=== PATIENT | male | born 1985 | race Caucasian/White ===

== ENCOUNTER 2018-12-01 03:49 | Emergency (ER) | payer OTHER ==
[~2018-12-01] VITALS: Ht 190.5 cm; Wt 113.4 kg
[2018-12-01 04:10] LABS: URINE BILIRUBIN NEGATIVE (Negative); URINE BLOOD NEGATIVE (Negative); URINE CLARITY CLEAR; URINE COLOR YELLOW; URINE GLUCOSE-RANDOM NEGATIVE (Negative); URINE KETONES NEGATIVE (Negative); URINE LEUKOCYTES-REFLEX NEGATIVE (Negative); URINE NITRITE-REFLEX NEGATIVE (Negative); URINE PROTEIN NEGATIVE (Negative); URINE SPECIFIC GRAVITY <= 1.005 (1.005-1.030); URINE UROBILINOGEN 0.2 E.U./dl (0.2-1.0)
[2018-12-01 04:14] LABS: ABSOLUTE BASOPHILS 0.1 thou/uL (0.0-0.2); ABSOLUTE EOSINOPHILS 0.1 thou/uL (0.0-0.7); ABSOLUTE LYMPHOCYTES 3.1 thou/uL (0.8-5.3); ABSOLUTE MONOCYTES 0.5 thou/uL (0.0-1.2); ABSOLUTE NEUTROPHILS 4.5 thou/uL (1.6-8.1); BASOPHILS 0.6 %; EOSINOPHILS 0.7 %; HEMATOCRIT 49.1 % (42.0-52.0); HEMOGLOBIN 16.6 gm/dL (14.0-18.0); LYMPHOCYTES 37.9 %; MCH 29.5 pg (26.0-34.0); MCHC 33.9 g/dL (28.0-37.0); MONOCYTES 6.2 %; MPV 8.5 fl. (7.2-11.1); NUCLEATED RBCS 0 /100WBC; PLATELET COUNT* 272 thou/uL (150-400); POLYS 54.6 %; RBC 5.64 mil/uL (4.50-6.00); RDW-CV 12.6 % (10.5-14.5); WBC 8.3 thou/uL (4.0-11.0)
[2018-12-01 04:18] LABS: AMP/METHAMP Negative (Negative); BARBITURATES Negative (Negative); BENZODIAZEPINES Negative (Negative); COCAINE Negative (Negative); METHADONE Negative (Negative); OPIATES Negative (Negative); PCP Negative (Negative); THC Negative (Negative)
[2018-12-01 04:29] LABS: ALBUMIN 4.4 g/dL (3.4-5.0); CALCIUM 9.1 mg/dL (8.5-10.1); TOTAL BILIRUBIN 0.3 mg/dL (<0.1-1.0); TOTAL PROTEIN 8.7 g/dL (6.4-8.2)
[2018-12-01 04:49] LABS: ALCOHOL 357 mg/dL (<10); SALICYLATE 3.4 mg/dL (2.8-20.0)
[2018-12-01 04:51] LABS: ACETAMINOPHEN < 2 ug/mL (10-30)
[2018-12-01 15:13] VITALS: BP 122/72
== END 2018-12-01 15:15 | disposition home or self-care (01) ==
LOC: M.ERS 03:49
PROVIDERS: Emergency Medicine
DX: F10.129 Alcohol abuse with intoxication, unspecified (principal); Y90.8 Blood alcohol level of 240 mg/100 ml or more; R45.851 Suicidal ideations

== ENCOUNTER 2019-10-27 11:13 | Observation (INO) | payer OTHER ==
[~2019-10-27] VITALS: Ht 190.5 cm; Wt 125.2 kg
[2019-10-27 11:22] VITALS: BP 126/72
[2019-10-27 11:56] LABS: URINE BILIRUBIN NEGATIVE (Negative); URINE BLOOD NEGATIVE (Negative); URINE CLARITY CLEAR; URINE COLOR YELLOW; URINE GLUCOSE-RANDOM NEGATIVE (Negative); URINE KETONES NEGATIVE (Negative); URINE LEUKOCYTES NEGATIVE (Negative); URINE NITRITE NEGATIVE (Negative); URINE PROTEIN NEGATIVE (Negative); URINE SPECIFIC GRAVITY >= 1.030 (1.005-1.030); URINE UROBILINOGEN 0.2 E.U./dl (0.2-1.0)
[2019-10-27 12:10] LABS: HEMATOCRIT 44.7 % (42.0-52.0); HEMOGLOBIN 15.4 gm/dL (14.0-18.0); MCH 29.1 pg (26.0-34.0); MCHC 34.5 g/dL (28.0-37.0); MCV 84.5 fL (80.0-100.0); MPV 9.5 fl. (7.2-11.1); NUCLEATED RBCS 0 /100WBC; PLATELET COUNT* 177 thou/uL (150-400); RBC 5.29 mil/uL (4.50-6.00); RDW-CV 13.1 % (10.5-14.5); WBC 15.1 thou/uL (4.0-11.0)
[2019-10-27 12:21] LABS: CALCIUM 9.2 mg/dL (8.5-10.1); CREATININE 1.1 mg/dL (0.6-1.3); POTASSIUM 4.2 mmol/L (3.5-5.1)
[2019-10-27 12:25] LABS: TOTAL BILIRUBIN 0.6 mg/dL (<0.1-1.0); TOTAL PROTEIN 7.5 g/dL (6.4-8.2)
[2019-10-27 12:58] LABS: ABSOLUTE EOSINOPHILS 0.2 thou/uL (0.0-0.7); ABSOLUTE LYMPHOCYTES 0.5 thou/uL (0.8-5.3); ABSOLUTE MONOCYTES 0.3 thou/uL (0.0-1.2); ABSOLUTE NEUTROPHILS 14.2 thou/uL (1.6-8.1); PLATELET ESTIMATE ADEQUATE
[2019-10-27 14:53] VITALS: BP 139/97
[2019-10-27 18:51] VITALS: BP 106/57
[2019-10-27 20:00] VITALS: BP 109/52
[2019-10-28 00:07] VITALS: BP 106/52
[2019-10-28 05:03] LABS: HEMATOCRIT 39.2 % (42.0-52.0); MCH 29.3 pg (26.0-34.0); MCHC 34.1 g/dL (28.0-37.0); MCV 85.9 fL (80.0-100.0); MPV 9.6 fl. (7.2-11.1); RBC 4.56 mil/uL (4.50-6.00); RDW-CV 12.9 % (10.5-14.5); WBC 11.2 thou/uL (4.0-11.0)
[2019-10-28 05:10] LABS: CALCIUM 8.1 mg/dL (8.5-10.1); CREATININE 0.9 mg/dL (0.6-1.3); MAGNESIUM 1.7 mg/dL (1.8-2.4); POTASSIUM 4.2 mmol/L (3.5-5.1)
[2019-10-28 05:23] LABS: HEMOGLOBIN 13.4 gm/dL (14.0-18.0)
[2019-10-28 08:00] VITALS: BP 108/63
--- NOTE | 2019-10-28 09:00 | NUR ---
ASSUMED PT CARE AT 0800, AOX4, UP AD TAYLER, O2 SAT 90'S 2L. PT COMPLAINS OF MILD PAIN. MEDS GIVEN WITH RELIEF. PT FOR DISCHARGE. VSS, WILL CONTINUE TO MONITOR.
[2019-10-28] MEDS ORDERED: PERCOCET 10-321 EAC1 PO (10:34)
[2019-10-28 10:35] VITALS: BP 108/63
--- NOTE | 2019-10-28 11:50 | NUR ---
DISCHARGE PLAN DISCUSSED WITH PT. MEDICATION PACKET/PRESCRIPTION GIVEN. IV REMOVED. ALL BELONGINGS PACKED AND CHECKED. LEFT THE UNIT AT 1149.
--- NOTE | 2019-10-30 14:07 | PATH ---
[address] [address] PATHOLOGY RPT PROCEDURE Name: TOD PAIZ Room: [address] Stalin#: [id number] Admission: 10/27/19 Date of : 85 Discharge: 10/28/19 Report #: [id number] Path Case #: [id number] [facility] Accession Number: [id number] . 01 Material submitted: . appendix - APPENDIX . 01 Clinical history: . Acute appendicitis . 02 Diagnosis: Appendix: - Acute appendicitis, periappendicitis and serositis. (TC:pit 10/30/2019) QTP 10/30/2019 1251 Local . 02 Electronically signed: . Joseph Panda MD, Pathologist NPI- [id number] . 01 Gross description: . The specimen is received in formalin, labeled "Tod Paiz, appendix" and consists of an appendix measuring 9.5 cm in length and up to 0.9 cm in diameter with mesoappendix measuring 2.1 cm thick. The serosa is conroy-cavazos with hemorrhage and adhesions. The margin is closed with a line of yonathan and inked black. Sectioning reveals a dilated lumen containing brown fecal material. Die Inspector sections are submitted in A1. (SDY; 10/29/2019) SYU/SYU 10/29/2019 1611 Local . 02 Pathologist provided ICD-10: K35.80 . 02 CPT . 283349 Specimen Comment: A courtesy copy of this report has been sent to [phone] Specimen Comment: Report sent to Performed at: [address], [place] [id number] MD Jason Cordero MD Phone: [phone] Performed at: [address] [facility] [address], [place], [place] [id number] MD Joseph Panda MD Phone: [phone]
--- NOTE | 2019-11-02 16:40 | OP ---
[address] [address] OPERATIVE REPORT Name: ERNESTO PAIZ Chantell Room: [address] Joe Gant#: [id number] Admission: 10/27/19 Attend Phys: Landon Massey Discharge: 10/28/19 Date of : 85 Report #: [id number] THIS REPORT FOR: //name// cc: ALLEN Cronin family physician/PCP ALLEN Cronin family physician/PCP ~ THIS REPORT FOR: //name// CC: ALLEN physician/PCP Luis Foote DICTATED BY: Jim Iyer DO DATE OF SERVICE: 10/27/2019 PREOPERATIVE DIAGNOSIS: Acute appendicitis. POSTOPERATIVE DIAGNOSIS: Acute appendicitis. PRIMARY SURGEON: Luis Foote DO SALES DEVELOPMENT ASSOCIATE: Jim Iyer DO, PGY-3 OPERATION PERFORMED: Laparoscopic appendectomy. ANESTHESIA TYPE: General and local. ESTIMATED BLOOD LOSS: 10 mL. SPECIMEN REMOVED: Appendix. COMPLICATIONS: None. URINE OUTPUT: 1100 mL. FINDINGS: Dilated, indurated, hyperemic appendix consistent with acute appendicitis. INDICATIONS FOR PROCEDURE: The patient is a pleasant 33-year-old male who presented to the ED earlier this afternoon with chief complaint of increasing lower abdominal pain. The patient was found to have a leukocytosis of 15.[address] abdomen and pelvis findings consistent with acute appendicitis with dilated appendix with periappendiceal fat stranding. We recommended laparoscopic appendectomy. Full discussion of procedure, alternatives, risks, and possible complications were discussed including but not limited to bleeding, infection, postoperative pain, scarring, hernia, injury to other underlying abdominal organs mainly bowel and bladder, conversion to open procedure, [place] [address] OPERATIVE REPORT Name: ERNESTO PAIZ Room: [address] Joe Gant#: [id number] Admission: 10/27/19 Attend Phys: Landon Massey Discharge: 10/28/19 Date of : 85 Report #: [id number] appendicitis, staple line failure, staple line leak, need for further surgery and anesthesia risks. The patient voiced understanding of these risks and agreed to proceed to the OR. OPERATIVE TECHNIQUE: The patient was again seen and examined in the preoperative holding area. Fully informed written consent was obtained. The abdomen was marked with a marking pen. Preoperative antibiotics, IV Zosyn was given. The patient was subsequently transported to the operating room suite and placed on the operating room table in the supine position. At this time, Anesthesia induced general anesthesia via endotracheal intubation. This was successful. SCDs were placed to bilateral lower extremity calves. Grounding pad was placed to the right lateral thigh. Safety strap was placed across the patient's lap. Left arm was tucked. Right arm was outstretched on an arm board. Upper extremity Jordyn Hugger was placed across the patient's chest. All extremities and joints were padded and protected. Abdomen was trimmed of hair using an electric leslie. The patient was then prepped and draped using standard sterile fashion. Timeout was performed prior to onset of procedure. We began by making a horizontal incision inferior to the umbilicus using open Travis technique. We dissected down through subcutaneous tissue. Using blunt and electrocautery, we reached the level of the fascia. Fascia was grasped with Kochers and elevated. This was transected using electrocautery. Hemostat was then used to enter the peritoneum. Two, 0 Vicryl stay sutures were placed at the fascial edges. A 5 mm Rebecca trocar was placed in the abdomen. Abdomen was insufflated, first using low flow and then high flow. A 5 mm 0-degree laparoscopic camera was placed in the abdomen, noting no injury to underlying abdominal structures upon entry into the abdomen. We then turned our attention to the right lower quadrant. The cecum was noted to be dilated. TI was easily seen coming off medial aspect of the cecum and there was a retrocecal appendix that was long, dilated, indurated, hyperemic and coiled on itself. Ligamentum teres was also located and indurated and inflamed. Next, an additional 5 mm trocar was placed in the suprapubic region and a 12 mm trocar was placed in the left lower quadrant. Using a laparoscopic [place] and laparoscopic LigaSure device, the mesoappendix was transected from the appendix tip back to the base. Once this was performed, the appendix was transected using an Endo-HAWA 45 mm purple load stapler at its base. The appendix was then placed into a 5 mm EndoCatch bag through the left lower quadrant trocar. Staple line was evaluated. There was no hemorrhage from this area and the staple line was intact. TI was again noted. There was no injury to the terminal ileum and it was seen directly coursing into the cecum. The patient was taken out of the Trendelenburg and left sided down position back to supine and the abdomen was again evaluated noting no other acute processes going on. Next, the left lower quadrant trocar was removed. The appendix was removed in the EndoCatch bag through the left lower [place] [address] OPERATIVE REPORT Name: ERNESTO PAIZ [address]: [address]#: [id number] Admission: 10/27/19 Attend Phys: Landon Massey Discharge: 10/28/19 Date of : 85 Report #: [id number] incision had to be marginally increased using #11 blade scalpel. Next, using a PMI closure device, an interrupted 0 Vicryl suture was used to close the fascia and peritoneum at the left lower quadrant site. . A 3-0 interrupted Vicryl suture was used for a layered closure of this trocar site as well of the subcutaneous and dermal layers and the skin was closed using a running subcuticular 4-0 Monocryl. The abdomen was desufflated under and the suprapubic port was removed under direct visualization. The fascia of the umbilical site was closed using an interrupted [id number] 0 Vicryl suture. A layered closure was then performed of the subcutaneous and deep dermal layers using a 3-0 interrupted Vicryl and the skin was closed using a running subcuticular 4-0 Monocryl. An additional interrupted subcuticular 4-0 Monocryl suture was used to close the suprapubic site. A 10 mL of 0.5% Marcaine were injected at each trocar site. Abdomen was cleansed using wet and dry lap. Sterile dressings were then applied, Mastisol, Steri-Strips, 4 x 4's, Tegaderms. The patient tolerated the procedure well and was extubated in the OR, transferred to PACU in stable condition after brief recovery from anesthesia. PLAN: To discharge home once he ambulates. He is tolerating p.o. intake and pain is controlled with p.o. meds. He will then follow up in the office with Dr. Foote in 1 week. <ELECTRONICALLY SIGNED> By: Luis Foote DO 11/02/19 1640 1725 1848Luis Foote DO /nt
== END 2019-10-28 11:54 | disposition home or self-care (01) ==
LOC: M.ERS 11:13 → M.TBA-ER 14:44 → M.ERS 14:44 → M.2W 14:44
PROVIDERS: Physician Assistant; ADMIT Surgery
DX: K35.80 Unspecified acute appendicitis (principal); F10.129 Alcohol abuse with intoxication, unspecified; R45.851 Suicidal ideations; F17.210 Nicotine dependence, cigarettes, uncomplicated; D72.829 Elevated white blood cell count, unspecified